=== PATIENT | female | born 2000 | race Caucasian/White ===

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

== ENCOUNTER 2022-07-07 06:30 | Emergency (ER) | payer OTHER ==
--- NOTE | 2022-07-07 07:05 | ED Physician Documentation ---
PD HPI CHEST PAIN - Stated complaint Stated Complaint: CHEST PX - Chief complaint Chief Complaint: Cardiac - History obtained from History obtained from: Patient - History of Present Illness Timing - onset: Last night Timing - onset during: Sleep (She states awoken from sleep with feeling of tightness and pressure in the left shoulder and arm into the mid chest. It persisted with getting up. It increased range to the right shoulder and arm as well. She denied any pleuritic component, lightheaded, nausea, dyspnea.) Timing - duration: Hours (has had it couple of hours at this point.) Timing - details: Abrupt onset, Still present (has lessened but not resolved) Quality: Tightness, Aching Location: Left chest, Left shoulder/arm, Right shoulder/arm Radiation: Jaw. No: Back, Abdominal Improved by: No: Rest Worsened by: No: Inspiration, Movement, Palpation Associated symptoms: Shortness of air (mild). No: Nausea, Feeling faint / dizzy, Palpitations Similar symptoms before: Has not had sx before Recently seen: Not recently seen Review of Systems Constitutional: denies: Fever, Chills Nose: denies: Rhinorrhea / runny nose, Congestion Throat: reports: Sore throat Cardiac: denies: Palpitations, Pedal edema, Calf pain Respiratory: denies: Cough, Wheezing GI: denies: Abdominal Pain, Nausea, Vomiting Musculoskeletal: denies: Extremity swelling PD PAST MEDICAL HISTORY - Past Medical History Past Medical History: Yes Cardiovascular: None Respiratory: None Neuro: None Endocrine/Autoimmune: None GI: None [employer]: None : None HEENT: None Psych: Depression Musculoskeletal: None Derm: None - Past Surgical History Past Surgical History: Yes General: Other - Present Medications Home Medications: Ambulatory Orders Medication Instructions Recorded Confirmed Famotidine [Pepcid] 20 mg PO DAILY #30 tablet 07/07/22 - Allergies Allergies/Adverse Reactions: Allergies Allergy/AdvReac Type Severity Reaction Status Date / Time amitriptyline AdvReac Unknown Verified 07/07/22 06:44 sertraline AdvReac Unknown Verified 07/07/22 06:44 - Social History Does the pt smoke?: No Smoking Status: Never smoker Does the pt drink ETOH?: Yes Does the pt have substance abuse?: No - Immunizations Immunizations are current?: Yes - POLST Patient has POLST: No PD ED PE NORMAL - Vitals Vital signs reviewed: Yes - General General: Alert and oriented X 3, No acute distress, Well developed/nourished - Neck Neck: Supple, no meningeal sign, No adenopathy - Cardiac Cardiac: RRR, No murmur - Respiratory Respiratory: Clear bilaterally, Other (no chestwall tenderness.) - Abdomen Abdomen: Soft, Non tender - Derm Derm: Normal color, Warm and dry - Extremities Extremities: Normal ROM s pain, No edema, No calf tenderness / cord - Neuro Neuro: Alert and oriented X 3, No motor deficit, Normal speech Results - Vitals Vitals: Vital Signs - 24 hr 07/07/22 07/07/22 07/07/22 06:41 06:45 09:24 Temperature 37.6 C 36.6 C Heart Rate 98 75 Respiratory 16 16 22 Rate Blood Pressure 123/71 114/74 O2 Saturation 99 99 Oxygen O2 Source Room air - EKG (time done) 06:47 Rate: Rate (enter#) (85) Rhythm: NSR [place]: Normal Intervals: Normal [place] QRS: Normal Ischemia: Normal ST segments. No: ST elevation c/w ischemia, ST depression - Labs Labs: Laboratory Tests 07/07/22 07/07/22 07/07/22 07:28 07:28 07:28 WBC 4.9 RBC 4.36 Hgb 12.5 Hct 38.6 MCV 88.5 MCH 28.7 MCHC 32.4 RDW 11.9 L Plt Count 238 MPV 10.1 Neut # (Auto) 3.0 Lymph # (Auto) 1.5 Clinch # (Auto) 0.3 Eos # (Auto) 0.1 Baso # (Auto) 0.0 Absolute Nucleated RBC 0.00 Nucleated RBC % 0.0 Sodium 134 L Potassium 3.8 Chloride 101 Carbon Dioxide 24 Anion Gap 9.0 BUN 8 Creatinine 0.6 Estimated GFR (MDRD) 126 Glucose 130 H Calcium 8.5 Total Bilirubin 0.4 AST 18 ALT 15 Alkaline Phosphatase 78 Troponin I High Sens < 2.3 L B-Natriuretic Peptide Total Protein 7.6 Albumin 4.0 Globulin 3.6 Albumin/Globulin Ratio 1.1 Lipase 45 07/07/22 07:28 WBC RBC Hgb Hct MCV MCH MCHC RDW Plt Count MPV Neut # (Auto) Lymph # (Auto) Clinch # (Auto) Eos # (Auto) Baso # (Auto) Absolute Nucleated RBC Nucleated RBC % Sodium Potassium Chloride Carbon Dioxide Anion Gap BUN Creatinine Estimated GFR (MDRD) Glucose Calcium Total Bilirubin AST ALT Alkaline Phosphatase Troponin I High Sens B-Natriuretic Peptide 24 Total Protein Albumin Globulin Albumin/Globulin Ratio Lipase - Rads (name of study) chest xray Radiology: Prelim report reviewed, EMP read indepedently (no acute process), See rad report PD Medical Decision Making - ED course Complexity details: re-evaluated patient (She did have some impact from antacid. Consider reflux and esophageal pain with referred pain. Her oxygenation is good. Vital signs are normal. She is PERC negative and does not have characteristics of PE. No pneumonia nor signs of heart muscle injury.), considered differential (Onset of shoulder arm and chest discomfort/tightness while sleeping. Continues with being upright. Has not tried any medicines. Nonpleuritic and nonpositional. No recent injury nor illness. No prior similar. No chest wall tenderness.), d/w patient Reviewed Lab Results: Her basic EKG, blood tests including troponin and BNP were ordered as was a chest x-ray. These were to evaluate for heart and lung particular causes for the pain. These were negative. She is PERC negative. At this point I do not feel further testing such as CT is needed. Social Determinants of Health: She is a non-smoker. She does vape occasionally. She denies recreational drug use. Does have history of anxiety and has been on citalopram for several months. No new medications recently. No recent travel. Departure - Departure Disposition: 01 Home, Self Care Clinical Impression: Chest pain radiating to arm Condition: Stable Record reviewed to determine appropriate education?: Yes Instructions: ED GERD Follow-Up: ESTEPHANIA HOFFMAN ARNP [Primary Care Provider] - Prescriptions: Famotidine [Pepcid] 20 mg PO DAILY #30 tablet Comments: Your EKG, chest x-ray, blood tests are normal showing no signs of pneumonia, collapsed lung, fluid in the lungs, heart failure, heart attack or injury, anemia, pancreatic problems or liver inflammation. Given that you did have some improvement with antacid, I would say this sounds like some esophageal irritation/esophagitis related to reflux. I would suggest some acid reducing medicine such as famotidine daily for the next several weeks to a month. Add antacid such as Maalox or Mylanta periodically through the day over the next few days as needed for discomfort. Also take some antacid before bedtime over the next week or 2. Recheck if recurring episodes or not fully improved over the next several days to a week. Forms: Activity restrictions Discharge Date/Time: 07/07/22 09:25
[2022-07-07] MEDS ORDERED: ACETAMINOPHEN 325 MG TABLET PO STA (07:20)
[2022-07-07] MEDS ORDERED: MAG HYDROX/AL HYDROX/SIMETH 30 ML UDC PO STA (07:20)
[2022-07-07 07:35] LABS: BASOPHILS % (AUTO) 0.6 %; EOSINOPHILS # (AUTO) 0.1 10^3/uL (0.0-0.7); EOSINOPHILS % (AUTO) 1.2 %; HCT - HEMATOCRIT 38.6 % (37.0-47.0); HGB - HEMOGLOBIN 12.5 g/dL (12.0-16.0); LYMPHOCYTES # (AUTO) 1.5 10^3/uL (1.5-3.5); MEAN CORPUSCULAR HEMOGLOBIN 28.7 pg (27.0-31.0); MEAN CORPUSCULAR HGB CONC 32.4 g/dL (32.0-36.0); MEAN CORPUSCULAR VOLUME 88.5 fL (81.0-99.0); MEAN PLATELET VOLUME 10.1 fL (7.9-10.8); MONOCYTES # (AUTO) 0.3 10^3/uL (0.0-1.0); MONOCYTES % (AUTO) 6.5 %; NEUTROPHILS % (AUTO) 60.3 %; PLT - PLATELET COUNT 238 10^3/uL (130-450); RED BLOOD COUNT 4.36 10^6/uL (4.20-5.40); RED CELL DISTRIBUTION WIDTH 11.9 % (12.0-15.0); WHITE BLOOD COUNT 4.9 x10^3/uL (4.8-10.8)
[2022-07-07 07:52] LABS: ALBUMIN/GLOBULIN RATIO 1.1 (1.0-2.2); BILIRUBIN,TOTAL 0.4 mg/dL (0.2-1.0); CALCIUM 8.5 mg/dL (8.5-10.3); CREATININE 0.6 mg/dL (0.4-1.0); POTASSIUM 3.8 mmol/L (3.5-5.0); TOTAL PROTEIN 7.6 g/dL (6.7-8.2)
--- NOTE | 2022-07-07 08:52 | XRAY Report ---
PROCEDURE: Chest 1 View X-Ray INDICATIONS: chest pain TECHNIQUE: One view of the chest was acquired. COMPARISON: None. FINDINGS: Surgical changes and devices: None. Lungs and pleura: No pleural effusions or pneumothorax. Lungs are clear. Mediastinum: Mediastinal contours appear normal. Heart size is normal. Bones and chest wall: No suspicious bony lesions. Overlying soft tissues appear unremarkable. IMPRESSION: No acute cardiopulmonary pathology. Reviewed by: Ajay Purvis MD on 07/07/2022 8:50 AM [facility] Approved by: Ajay Purvis MD on 07/07/2022 8:50 AM [facility] Station ID: [id number]
[2022-07-07] MEDS ORDERED: FAMOTIDINE 20 MG TABLET PO STA (09:07)
[2022-07-07 09:25] VITALS: BP 114/74
== END 2022-07-07 09:25 | disposition home or self-care (01) ==
LOC: ED 06:30
DX: R07.9 Chest pain, unspecified (principal); M79.602 Pain in left arm; M79.601 Pain in right arm
CPT/HCPCS: 36415; 71045; 80053; 83690; 83880; 84484; 85025; 93005; 99284; A9270